=== PATIENT | male | born 1955 | race Caucasian/White ===

== ENCOUNTER 2025-06-09 11:22 | Inpatient (IN) | payer MEDICARE, MEDICAID ==
[~2025-06-09] VITALS: Ht 165.1 cm; Wt 57.5 kg
[~2025-06-09 11:22] MED LIST: ATOR20TA65 PO; FERR160T; FURO80TA3 PO; GLIP5TAB3; HYDR-4062 PO; LEVO88TA4 PO; LISI-1024 PO; METO5SOL3 PO; NIFE60TA21 PO
[2025-06-09] MEDS ORDERED: INSREG SQ (11:46)
[2025-06-09] MEDS ORDERED: DOCU-385 PO (11:46)
[2025-06-09] MEDS ORDERED: CARV12 PO (11:46)
[2025-06-09] MEDS ORDERED: CHOL200059 PO (11:46)
[2025-06-09] MEDS ORDERED: PRED-549 PO (11:46)
[2025-06-09] MEDS ORDERED: FOLI0.8T54 PO (11:46)
[2025-06-09] MEDS ORDERED: INSLAN SQ (11:46)
[2025-06-09 12:27] LABS: APPEARANCE,URINE HAZY (CLEAR); GLUCOSE, URINE (UA) 300-500 mg/dL (NEGATIVE); LEUKOCYTE ESTERASE ,URINE NEGATIVE (NEGATIVE); NITRATE,URINE NEGATIVE (NEGATIVE); OCCULT BLOOD,URINE MODERATE (NEGATIVE); SPECIFIC GRAVITIY, URINE 1.037 (1.003-1.030)
[2025-06-09 12:40] LABS: SULFOSALICYLIC ACID,URINE 3+ (Negative)
[2025-06-09 12:56] LABS: PLATELET COUNT (AUTO) 257 K/uL (150-450); RED BLOOD CELL COUNT(AUTO) 2.74 MIL/uL (4.50-5.90); RED CELL DISTRIBUTION WIDTH 18.1 % (11.5-14.5); WHITE BLOOD COUNT (AUTO) 5.0 K/uL (4.5-11.0)
[2025-06-09 13:04] LABS: CALCIUM, TOTAL 7.7 mg/dL (8.8-10.5); CREATININE 3.1 mg/dL (0.60-1.30); GLOMERULAR FILTR. RATE CALC 20.0 mL/min (>60); GLUCOSE,RANDOM 185.0 mg/dL (70-110); SODIUM SERUM 138.0 mmol/L (136-145); UREA NITROGEN, BLOOD 26.0 mg/dL (7-18)
[2025-06-09] MEDS ORDERED: ZOLPIDEM TARTRATE 5 MG TABLET PO PRN (15:15)
[2025-06-09] MEDS ORDERED: DEXTROSE 50%-WATER 25 GM/50 ML SYRINGE IVP PRN (15:15)
[2025-06-09] MEDS ORDERED: ACETAMINOPHEN 325 MG TABLET PO PRN (15:15)
[2025-06-09 15:46] LABS: TROPONIN I-HIGH SENSITIVITY 133 ng/L (<76)
[2025-06-09] MEDS: INSULIN LISPRO 100 UNITS/ML SQ PRN (17:42)
[2025-06-09 17:51] LABS: GLUCOMETER DEV NAME(LOC) ERT.7; GLUCOSE,POINT OF CARE 294 MG/DL (70-110)
[2025-06-09 19:58] LABS: TROPONIN I-HIGH SENSITIVITY 114 ng/L (<76)
[2025-06-09] MEDS: DOCUSATE SODIUM 100 MG CAPSULE PO SCH (21:47)
[2025-06-10] VITALS (13 sets, daily range): BP systolic 112–178; BP diastolic 44–80; PULSE 53–72; RESP 16–19; TEMP 97.7–98.3; O2SAT 96–100
[2025-06-10 06:04] LABS: PLATELET COUNT (AUTO) 248 K/uL (150-450); RED BLOOD CELL COUNT(AUTO) 2.63 MIL/uL (4.50-5.90); RED CELL DISTRIBUTION WIDTH 18.6 % (11.5-14.5); WHITE BLOOD COUNT (AUTO) 4.3 K/uL (4.5-11.0)
[2025-06-10] MEDS: LEVOTHYROXINE SODIUM 88 MCG TABLET PO SCH (06:05)
[2025-06-10 06:20] LABS: CALCIUM, TOTAL 7.5 mg/dL (8.8-10.5); CREATININE 4.42 mg/dL (0.60-1.30); GLOMERULAR FILTR. RATE CALC 13.0 mL/min (>60); GLUCOSE,RANDOM 178.0 mg/dL (70-110); SODIUM SERUM 138.0 mmol/L (136-145); UREA NITROGEN, BLOOD 45.0 mg/dL (7-18)
[2025-06-10] MEDS: ATORVASTATIN CALCIUM 20 MG TABLET PO SCH (08:15)
[2025-06-10] MEDS: FAMOTIDINE 20 MG TABLET PO SCH (08:15)
[2025-06-10 11:50] LABS: GLUCOMETER DEV NAME(LOC) 5S.1D; GLUCOSE,POINT OF CARE 199 MG/DL (70-110)
[2025-06-10 11:50] LABS: GLUCOMETER DEV NAME(LOC) 5S.1D; GLUCOSE,POINT OF CARE 231 MG/DL (70-110)
[2025-06-10] MEDS ORDERED: SODIUM CHLORIDE 0.9% 1,000 ML ONE (18:17)
[2025-06-10 19:10] LABS: GLUCOMETER DEV NAME(LOC) 5S.1D; GLUCOSE,POINT OF CARE 229 MG/DL (70-110)
[2025-06-11] VITALS: BP 151/67; PULSE 63; RESP 20; TEMP 99; O2SAT 97
[2025-06-11 04:00] VITALS: BP 135/57; PULSE 62; RESP 20; TEMP 98.6; O2SAT 95
[2025-06-11 07:13] LABS: PLATELET COUNT (AUTO) 244 K/uL (150-450); RED BLOOD CELL COUNT(AUTO) 2.70 MIL/uL (4.50-5.90); RED CELL DISTRIBUTION WIDTH 18.4 % (11.5-14.5); WHITE BLOOD COUNT (AUTO) 3.9 K/uL (4.5-11.0)
[2025-06-11 07:23] LABS: RBC MORPHOLOGY COMMENT ABNORMAL RBC MORPH
[2025-06-11 08:49] VITALS: BP 118/55; PULSE 57; RESP 18; TEMP 97.8; O2SAT 99
[2025-06-11 11:32] VITALS: BP 128/53; PULSE 58; RESP 18; TEMP 97.6; O2SAT 98
[2025-06-11 20:01] LABS: GLUCOMETER DEV NAME(LOC) 5S.1D; GLUCOSE,POINT OF CARE 157 MG/DL (70-110)
[2025-06-11 20:01] LABS: GLUCOMETER DEV NAME(LOC) 5S.1D; GLUCOSE,POINT OF CARE 189 MG/DL (70-110)
[2025-06-11 20:01] LABS: GLUCOMETER DEV NAME(LOC) 5S.1D; GLUCOSE,POINT OF CARE 218 MG/DL (70-110)
[2025-06-12] MEDS ORDERED: EPOETIN ALFA 10,000 UNITS/ML VIAL SQ SCH (09:00)
== END 2025-06-11 13:30 | disposition home or self-care (01) | DRG 698 ==
LOC: EMS 11:22 → UNDOADMIN 15:15 → EDH 15:15 → 5S 06-10 00:34
PROVIDERS: ADMIT Internal Medicine; ATTEND Internal Medicine
DX: T86.12 Kidney transplant failure (principal); N18.6 End stage renal disease; E46 Unspecified protein-calorie malnutrition; I13.11 Hypertensive heart and chronic kidney disease without heart failure, with stage 5 chronic kidney disease, or end stage renal disease; R64 Cachexia; N25.81 Secondary hyperparathyroidism of renal origin; R31.0 Gross hematuria; Z99.2 Dependence on renal dialysis; E11.40 Type 2 diabetes mellitus with diabetic neuropathy, unspecified; Z79.4 Long term (current) use of insulin; E11.319 Type 2 diabetes mellitus with unspecified diabetic retinopathy without macular edema; E11.22 Type 2 diabetes mellitus with diabetic chronic kidney disease; E88.09 Other disorders of plasma-protein metabolism, not elsewhere classified; R62.7 Adult failure to thrive; D63.1 Anemia in chronic kidney disease
CPT/HCPCS: 71045; 76770; 80048; 81001; 81002; 82962; 84443; 84484; 85025; 86850; 86900; 86901; 87340; 90935; 93005; 99285; G0378; J1815; J7030; 36415-L1; 36415-TC